=== PATIENT | female | born 1930 | race Caucasian/White ===

== ENCOUNTER 2016-12-19 06:56 | Emergency (ER) | payer MEDICARE ==
[~2016-12-19 06:56] MED LIST: ALDACTONE25 MG PO; BUSPIRONE HCL10 MG PO; CARVEDILOL3.125 MG PO; CLARITIN10 M2 PO; CORDARONE 200M200 MG PO; CYCLOBENZAPRINE10 MG PO; FUROSEMIDE40 MG PO; LORAZEPAM0.5 MG PO; NEURONTIN 400400 MG PO; OXYCODONE-ACET1 EACH PO; PHENERGAN 12.12.5 M1 PO; PHENERGAN 25 MG25 M1 PO; PLAVIX 75 MG TA75 MG PO; VITAMIN D50000 UNIT PO
[2016-12-19 08:37] LABS: RED BLOOD COUNT 4.25 M/UL (4.00-5.10); WHITE BLOOD COUNT 8.1 K/UL (4.5-11.0)
== END 2016-12-19 10:45 | disposition home or self-care (01) ==
LOC: ER1 06:56
PROVIDERS: Emergency Medicine
DX: J20.9 Acute bronchitis, unspecified (principal); R00.1 Bradycardia, unspecified; I10 Essential (primary) hypertension; I51.9 Heart disease, unspecified; Z95.5 Presence of coronary angioplasty implant and graft; Z79.02 Long term (current) use of antithrombotics/antiplatelets; Z79.891 Long term (current) use of opiate analgesic; Z79.899 Other long term (current) drug therapy; Z88.5 Allergy status to narcotic agent; Z88.8 Allergy status to other drugs, medicaments and biological substances
CPT/HCPCS: 36415; 71010; 80053; 82550; 82553; 83735; 83874; 84484; 85025; 93005; 94640; 94664; 96361; 96374; 99285; J2930